=== PATIENT | female | born 1935 | race Caucasian/White ===

== ENCOUNTER 2016-09-07 13:59 | Emergency (ER) | payer MEDICARE ==
[2016-09-07] MEDS ORDERED: LABETALOL HCL 100 MG/20 ML VIAL IV ONE (14:43)
[2016-09-07 14:51] LABS: BLOOD UREA NITROGEN 19 mg/dL (7-17); CHLORIDE 98 mmol/L (98-107); GLUCOSE 113 mg/dL (70-100); MAGNESIUM 1.8 mg/dL (1.6-2.3); POTASSIUM 3.5 mmol/L (3.5-5.1); SODIUM 134 mmol/L (137-145)
[2016-09-07 14:58] LABS: WHITE BLOOD COUNT 9.5 X 10^3uL (3.9-10.7)
[2016-09-07 14:59] LABS: EOSINOPHIL % (Manual) 4 % (0.0-6.0); HEMOGLOBIN 14.5 g/dL (12.0-16.0); LYMPHOCYTE % (Manual) 27 % (20.0-40.0); MEAN CORPUS. HGB CONCENTRATION 32.2 g/dL (32.0-36.0); MONOCYTE % (Manual) 5 % (2.0-10.0); NEUTROPHIL % (Manual) 64 % (54.0-75.0); PLATELET COUNT 299 X 10^3uL (130-440); PLATELET ESTIMATE ADEQUATE; RED BLOOD COUNT 5.18 X 10^6uL (4.20-6.10)
[2016-09-07 15:08] LABS: TROPONIN I < 0.012 ng/mL (0.00-0.034)
--- NOTE | 2016-09-07 15:51 | ER PHYSICIAN DOCUMENTATION ---
Physician Documentation [facility] Name:Анна Alejandre Age:81 yrs Sex:Female :1935 Arrival Date:09/07/2016 Time:13:59 Bed4 Private MD:Brian Warner ED, John Disposition: 09/07/16 15:38 Discharged to Home/Self Care. Impression: Hypertensive Emergency, Dyspnea. - Condition is Fair. - Discharge Instructions: HYPERTENSION, Established, Out of Control. - Prescriptions for Metoprolol Tartrate 25 mg Oral - take 1 tablet by ORAL route 2 times per day with a meal; 30 tablet. - Medical Reconciliation form form. - Follow up: Brian Warner MD; When: tomorrow 09/08 at 11:15am; Reason: Continuance of care. - Problem is new. - Symptoms have improved. HPI: 09/07 14:36 This 81 yrs old Female presents to ER with complaints of Blood Pressure jm Problem. 14:36 The patient has shortness of breath at rest. Onset: The symptom(s)/episode jm began/occurred today. Duration: The symptoms are continuous. The patient's shortness of breath is alleviated by nothing. Associated signs and symptoms: Pertinent positives: elevated BP. Severity of symptoms: in the emergency department the symptoms are unchanged. The patient has not experienced similar symptoms in the past. The patient has not recently seen a physician. Pt noted elevated BP's in [place] a week before she came here in [facility], but also now. She went to see Dr. Warner, but c/o of SOB, so the clinic recommended that she be seen here. She denies CP or edema. . Historical: - Allergies: NSAIDS; Darvon; - Home Meds: 1. potassium chloride 20 mEq oral TbER 1 tab 2 times per day 2. Norvasc 10 mg oral tab 1 tab once daily 3. tramadol 50 mg oral tab 1 tab every 6 hours as needed 4. lisinopril 10 mg oral tab 1 tab once daily 5. Cipro 250 mg oral tab 1 tab every 12 hours - PMHx: Hypertension; Cancer; UTI; ARTHRITIS; ARRYTHMIA; MITRAL VALVE DISORDER MURMUR; - PSHx: Hysterectomy; HERNIA REPAIR; LUMPECTOMY; Appendectomy; KNEE SURGERY; - Tetanus: < 10 years. - Ebola Screening: : Patient negative for fever greater than or equal to 101.5 degrees Fahrenheit, and additional compatible Ebola Virus Disease symptoms. - Immunization history: Flu Vaccine < 1 year. - Social history: Smoking status: Patient states was never smoker of tobacco. ROS: 14:37 Constitutional: Negative for fatigue, fever. jm 14:37 Cardiovascular: Negative for chest pain, edema. 14:37 Respiratory: Positive for shortness of breath. 14:37 MS/extremity: Negative for swelling. 14:37 Skin: Negative for swelling. 14:37 All other systems are negative. Exam: 14:41 Constitutional: The patient appears alert, awake. jm 14:41 Eyes: Periorbital structures: appear normal, Conjunctiva: normal. 14:41 ENT: Mouth: is normal, Voice: is normal. 14:41 Cardiovascular: Rate: tachycardic, Rhythm: regular, Edema: is not appreciated. 14:41 Respiratory: Respirations: normal, Breath sounds: are normal. 14:41 Abdomen/GI: Bowel sounds: normal, Palpation: abdomen is soft and non-tender. 14:41 Musculoskeletal/extremity: DVT Exam: No signs of deep vein thrombosis. Calves: are non-tender, have equal circumference. 14:41 Skin: Appearance: Color: pink, no rash present. 14:41 Neuro: Mentation: is normal, Memory: is normal. 14:41 Psych: Behavior/mood is pleasant, cooperative, Affect is calm. Vital Signs: 14:00 BP 181 / 118; Pulse 119; Resp 18; Temp 99.2(O); Pulse Ox 92% on R/A; Weight 49.44 kg; rh Height 4 ft. 10 in. (147.32 cm); Pain 0/10; 14:18 BP 167 / 111 (auto/); rh 14:20 Pulse 117 MON; Resp 26; rh 14:35 BP 154 / 98 (auto/); rh 14:35 Pulse 101 MON; Resp 24; rh 14:44 BP 130 / 75 (auto/); tg 14:46 BP 128 / 78 (auto/); tg 14:50 Pulse 77 MON; Resp 17; Pulse Ox 94% ; tg 14:55 Pulse 74 MON; Resp 27; Pulse Ox 91% ; tg 15:00 BP 135 / 82 (auto/); tg 15:15 BP 137 / 79 (auto/); tg 15:20 Pulse 71 MON; Resp 26; Pulse Ox 90% ; tg 14:00 Body Mass Index 22.78 (49.44 kg, 147.32 cm) rh MDM: 14:01 Patient medically screened. 14:32 EKG attached rh 15:41 Differential diagnosis: Anxiety Reaction asthma, pulmonary edema. Data reviewed: vital jm signs, nurses notes, old medical records, lab test result(s), EKG, radiologic studies, and as a result, I will discharge patient. Test interpretation: by ED physician or midlevel provider: plain radiologic studies, ECG. Counseling: I had a detailed discussion with the patient and/or guardian regarding: the historical points, exam findings, and any diagnostic results supporting the discharge/admit diagnosis, lab results, radiology results, the need for outpatient follow up, with the patient's primary care provider. Medication response: The patient's symptoms have improved, labetalol partially reduced the patient's blood pressure. Physician consultation: Brian Warner MD regarding outpatient follow-up, tomorrow, and will see patient tomorrow, would like medications started, metoprolol 25mg BID. ED course: Dx is hypertensive urgency. Pt will need to start beta yani. Dr. Warner suggested metoprolol 25mg BID and outpt visit tomorrow. Pt understands and DC'd home. . 09/07 15:00 Order name: CBC W/ MANUAL DIFFERENTIAL [facility] 09/07 15:09 Order name: BASIC METABOLIC PANEL [facility] 09/07 15:09 Order name: MAGNESIUM [facility] 09/07 15:09 Order name: BNP,NT-PRO [facility] 09/07 15:09 Order name: TROPONIN I [facility] 09/07 15:26 Order name: PROTIME/INR [facility] 09/08 15:05 Order name: CHEST; SINGLE VIEW [address] [facility] 09/07 14:16 Order name: 12-lead EKG; Complete Time: 14:22 09/07 14:16 Order name: Iv Saline Lock; Complete Time: 14:22 09/07 14:16 Order name: Place Patient On Monitor; Complete Time: 14:22 09/07 14:16 Order name: Pulse Ox Continuous; Complete Time: 14:22 Dispensed Medications: 14:47 Drug: Labetalol 10 mg; Route: IVP; Infused Over: 2 mins; Site: left antecubital; tg 15:41 Follow up: Response: Blood pressure is lowered tg 14:49 CANCELLED (Duplicate Order): Labetalol 10 mg IVP once over 2 mins tg Signatures: Luca Mendez RN RN tg Dru Donohue MD MD jm Hofsess, Rachel
--- NOTE | 2016-09-07 15:51 | ER NURSING DOCUMENTATION ---
Nurse's Notes [facility] Name:Анна Alejandre Age:81 yrs Sex:Female :1935 Arrival Date:09/07/2016 Time:13:59 Bed4 Private MD:Brian Warner Diagnosis:Hypertensive Emergency;Dyspnea Presentation: 09/07 14:01 Acuity: ELLIOTT 2 rh 14:04 Presenting complaint: Patient states: High BP at home with own monitor. Slight SOB. BP tg today was 155/110. 15:50 Transition of care: patient was not received from another setting of care. tg 15:50 Method Of Arrival: Private Vehicle tg Triage Assessment: 14:37 General: Appears in no apparent distress, Behavior is cooperative, pleasant. Pain: tg Denies pain. Neuro: Level of Consciousness is awake, alert. Cardiovascular: Rhythm is sinus tachycardia. Respiratory: Respiratory effort is even, unlabored. Derm: Skin is pink, warm & dry. Historical: - Allergies: NSAIDS; Darvon; - Home Meds: 1. potassium chloride 20 mEq oral TbER 1 tab 2 times per day 2. Norvasc 10 mg oral tab 1 tab once daily 3. tramadol 50 mg oral tab 1 tab every 6 hours as needed 4. lisinopril 10 mg oral tab 1 tab once daily 5. Cipro 250 mg oral tab 1 tab every 12 hours - PMHx: Hypertension; Cancer; UTI; ARTHRITIS; ARRYTHMIA; MITRAL VALVE DISORDER MURMUR; - PSHx: Hysterectomy; HERNIA REPAIR; LUMPECTOMY; Appendectomy; KNEE SURGERY; - Tetanus: < 10 years. - Ebola Screening: : Patient negative for fever greater than or equal to 101.5 degrees Fahrenheit, and additional compatible Ebola Virus Disease symptoms. - Immunization history: Flu Vaccine < 1 year. - Social history: Smoking status: Patient states was never smoker of tobacco. Screenin:22 Infectious Disease Risk None. Abuse screen: Denies threats or abuse. Denies injuries rh from another. Nutritional screening: No deficits noted. Vital Signs: 14:00 BP 181 / 118; Pulse 119; Resp 18; Temp 99.2(O); Pulse Ox 92% on R/A; Weight 49.44 kg; rh Height 4 ft. 10 in. (147.32 cm); Pain 0/10; 14:18 BP 167 / 111 (auto/); rh 14:20 Pulse 117 MON; Resp 26; rh 14:35 BP 154 / 98 (auto/); rh 14:35 Pulse 101 MON; Resp 24; rh 14:44 BP 130 / 75 (auto/); tg 14:46 BP 128 / 78 (auto/); tg 14:50 Pulse 77 MON; Resp 17; Pulse Ox 94% ; tg 14:55 Pulse 74 MON; Resp 27; Pulse Ox 91% ; tg 15:00 BP 135 / 82 (auto/); tg 15:15 BP 137 / 79 (auto/); tg 15:20 Pulse 71 MON; Resp 26; Pulse Ox 90% ; tg 14:00 Body Mass Index 22.78 (49.44 kg, 147.32 cm) rh ED Course: 14:00 Patient arrived in ED. ds 14:00 Dru Donohue MD is Attending Physician. tony 14:00 Brian Warner MD is Private Physician. ds 14:01 Triage completed. rh 14:10 Notified ED Physician of patient's arrival and chief complaint. Dr. Donohue notified. rh 14:10 monitoring coordinator on. Pulse ox on. NIBP on. rh 14:11 EKG done. (by ED staff). Reviewed by Dru Donohue MD. tg 14:22 Valuables Remains with patient Patient has correct armband on for positive rh identification. Placed in gown. Bed in low position. Call light in reach. Side rails up X 1. Family accompanied patient. 14:23 Missed attempts: 20 gauge X 2 in right antecubital area, in left antecubital area, rh Bleeding controlled, band aid applied, catheter tip intact. 14:32 EKG attached rh 14:36 Luca Mendez, RN is Primary Nurse. tg 14:36 Inserted peripheral IV: 22 gauge in left antecubital area and blood collected. tg 15:38 Brian Warner MD is Referral Physician. tony Administered Medications: 14:47 Drug: Labetalol 10 mg; Route: IVP; Infused Over: 2 mins; Site: left antecubital; tg 15:41 Follow up: Response: Blood pressure is lowered tg 14:49 CANCELLED (Duplicate Order): Labetalol 10 mg IVP once over 2 mins tg Outcome: 15:38 Discharge ordered by . tony 15:50 Discharged to home ambulatory, with family. tg 15:50 Condition: stable 15:50 Discharge Assessment: Patient awake, alert and oriented x 3. No cognitive and/or functional deficits noted. Patient verbalized understanding of disposition instructions. 15:50 Instructed on discharge instructions, follow up and referral plans. medication usage, Prescriptions given X 1. 15:50 IV D/Faraz 15:51 Patient left the ED. tg 09/08 09:59 Discharge F/U Call: Spoke with: patient. Overall Care on a scale of 1-10 with 10 tg being the best care, you rate our care as: Other comments: Appreciative of care, feeling better, has appt. Signatures: Luca Mendez, RN RN tg Srot, Ana, Reg Reg Dru Nagy MD MD jm Hofsess, Rachel
--- NOTE | 2016-09-08 12:01 | RADIOLOGY REPORT ---
A limited single portable view of the chest, without prior films for comparison , demonstrates the heart and vessels to be unremarkable. Lung ray are clear. IMPRESSION: Unremarkable limited single portable view of the chest. MTDD
== END 2016-09-07 15:51 | disposition home or self-care (01) ==
LOC: ER 13:59
DX: I16.1 Hypertensive emergency (principal); R06.00 Dyspnea, unspecified; R06.02 Shortness of breath; R00.0 Tachycardia, unspecified; I45.10 Unspecified right bundle-branch block; I34.9 Nonrheumatic mitral valve disorder, unspecified; Z79.899 Other long term (current) drug therapy
CPT/HCPCS: 71010; 80048; 83735; 83880; 84484; 85007; 85027; 85610; 93005; 93010; 96374; 99284; 99285